=== PATIENT | male | born 1945 | race Caucasian/White ===

== ENCOUNTER 2020-04-07 11:39 | Emergency (ER) | payer MEDICARE, OTHER, SELFPAY ==
--- NOTE | ~2020-04-07 | CT_ITS ---
EXAMINATION: CT thoracic lumbar wo con DATE: 04/07/2020 12:34 INDICATION: Back pain TECHNIQUE: Computed tomography (CT) of the thoracic and lumbar spine was performed without intravenou s contrast. The dose-length product (DLP) was 1441.52 mGy-cm. Iterative reconstruction was used. COMPARISON: None FINDINGS: Thoracic spine: Vertebral body heights and alignment are normal. There is mild loss of intervertebral disc space height at multiple levels in the thoracic spine. No fracture is identified. The preverteb ral soft tissues are normal. Lumbar spine: There is no fracture. There are 2 mm of anterolisthesis of L5 on S1. There is moderate loss of intervertebral disc space height at L4-5 and mild loss of intervertebral disc space height at L5-S1. The vertebral body heights are normal. The prevertebral soft tissues are unremarkable. Phlebo liths are noted in the pelvis. IMPRESSION: 1. Mild thoracic and moderate lumbar spondylosis without acute findings. Reviewed, dictated and finalized at location A.
--- NOTE | ~2020-04-07 | CT_ITS ---
EXAMINATION: CT cervical spine wo con DATE: 04/07/2020 12:34 INDICATION: Neck pain TECHNIQUE: Computed tomography (CT) of the cervical spine was performed without intravenous contrast. The dose-length product (DLP) was 291.63 mGy-cm. Automated exposure control and iterative reconstruc tion technique were employed. COMPARISON: None FINDINGS: There is no fracture, dislocation, or subluxation. The vertebral body heights are maintaine d. Mild loss of intervertebral disc space height is present at C5-6 and C6-7. There is moderate to se lai multilevel facet osteoarthritis. Mild to moderate multilevel uncovertebral joint osteoarthritis is also noted. The odontoid is intact. The prevertebral soft tissues are normal. There are multiple t hyroid nodules which measure up to 1.3 cm. IMPRESSION: 1. Mild cervical spondylosis without acute findings. Reviewed, dictated and finalized at location A.
--- NOTE | ~2020-04-07 | CT_ITS ---
EXAMINATION: CT brain wo con INDICATION: Head injury COMPARISON: None TECHNIQUE: Standard unenhanced head CT. The dose-length product (DLP) was 605.33 mGy-cm. The mA was a djusted according to patient size. Iterative reconstruction technique was employed. FINDINGS: There is no acute intraparenchymal hemorrhage. No evidence of mass lesion. No evidence of a cute infarction. There is mild periventricular and subcortical hypodensity probably related to small vessel ischemic disease. There is mild prominence of the sulci and ventricles related to cerebral atr ophy. Intracranial calcified cerebral atherosclerosis is noted. There are no extra-axial collections. There is no mass effect or midline shift. The orbits are unremarkable. There is mild left frontal sc alp soft tissue swelling. The visualized sinuses and mastoid air cells are well aerated. IMPRESSION: 1. No acute intracranial abnormality. 2. Age related findings. Reviewed, dictated and finalized at location A.
[2020-04-07 11:45] VITALS: BP 115/88; PULSE 63; RESP 20; TEMP 37.1; O2SAT 99
[2020-04-07] MEDS: TETANUS,DIPHTHERIA,AC PERTUSSIS ADULT (0.5 ML) BOOSTRIX IM (12:01)
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
[2020-04-07 13:36] VITALS: BP 150/84; PULSE 61; RESP 18; O2SAT 100
[2020-04-07 14:10] VITALS: BP 138/72; PULSE 76; RESP 18; O2SAT 99
== END 2020-04-07 14:12 | disposition home or self-care (01) ==
PROVIDERS: Emergency Provider General Practice
DX: S00.83XA Contusion of other part of head, initial encounter (principal); S39.92XA Unspecified injury of lower back, initial encounter; M19.90 Unspecified osteoarthritis, unspecified site; Z23 Encounter for immunization; M47.814 Spondylosis without myelopathy or radiculopathy, thoracic region; M47.816 Spondylosis without myelopathy or radiculopathy, lumbar region; V18.4XXA Pedal cycle driver injured in noncollision transport accident in traffic accident, initial encounter; Y93.55 Activity, bike riding
CPT/HCPCS: 70450; 72125; 72128; 72131; 90471; 90715; 99284